=== PATIENT | male | born 1940 | race Caucasian/White ===

== ENCOUNTER → 2017-10-08 | Outpatient (CLI) | payer MEDICARE, OTHER | END | disposition home or self-care (01) | LOC: CFH 12:30 | PROVIDERS: ATTEND Internal Medicine Cardiovascular Disease | DX: I35.8 Other nonrheumatic aortic valve disorders (principal); Z85.46 Personal history of malignant neoplasm of prostate; Z87.891 Personal history of nicotine dependence | CPT/HCPCS: 93306 ==

== ENCOUNTER 2017-11-08 10:41 | Observation (INO) | payer MEDICARE, OTHER ==
[~2017-11-08] VITALS: Ht 177.8 cm; Wt 74.4 kg
[2017-11-08] MEDS ORDERED: SODIUM CHLORIDE 0.9% 1,000 ML IV ONE (13:26)
[2017-11-08] MEDS ORDERED: ALLO100T30 PO (13:29)
[2017-11-08] MEDS ORDERED: HYDR12.53 PO (13:29)
[2017-11-08 13:30] VITALS: BP 161/93
[2017-11-08] MEDS ORDERED: ASPIRIN 325 MG TABLET EC PO ONE (13:30)
[2017-11-08 13:54] LABS: BASOPHILS # (AUTO) 0.04 x10^3/uL (0-0.1); BASOPHILS % (AUTO) 1 % (0-1); EOSINOPHILS # (AUTO) 0.17 x10^3/uL (0-0.4); EOSINOPHILS % (AUTO) 3 % (1-7); LYMPHOCYTES # (AUTO) 1.23 x10^3/uL (1-3.4); LYMPHOCYTES % (AUTO) 24 % (22-44); MD NO; MEAN CORPUSCULAR HEMOGLOBIN 29.9 pg (27.5-34.5); MEAN CORPUSCULAR VOLUME 90.7 fL (81-97); MEAN PLATELET VOLUME 7.1 fL (7.4-10.4); MONOCYTES # (AUTO) 0.49 x10^3/uL (0.2-0.8); MONOCYTES % (AUTO) 9 % (2-9); NEUTROPHILS # (AUTO) 3.28 x10^3/uL (1.8-6.8); NEUTROPHILS % (AUTO) 63 % (42-75); PLATELET COUNT 233 x10^3/uL (130-400); RED BLOOD COUNT 5.26 x10^6/uL (4.38-5.82); RED CELL DISTRIBUTION WIDTH 14.8 % (9.4-14.8)
[2017-11-08 14:02] LABS: ANION GAP 6 mmol/L (5-15); CALCIUM 8.7 mg/dL (8.5-10.1); CHLORIDE 99 mmol/L (98-107)
[2017-11-08] MEDS ORDERED: FENTANYL PF 100 MCG/2ML ONE (14:35)
[2017-11-08] MEDS ORDERED: MIDAZOLAM 1 MG/ML, 5ML ONE (14:35)
[2017-11-08] MEDS ORDERED: TICAGRELOR 90 MG TABLET ONE (14:35)
[2017-11-08] MEDS ORDERED: VERAPAMIL 2.5 MG/ML, 2ML ONE (14:36)
[2017-11-08] MEDS ORDERED: LIDOCAINE-MPF 2% ,5ML ONE (14:36)
[2017-11-08] MEDS ORDERED: BIVALIRUDIN 250 MG ONE (14:36)
[2017-11-08] MEDS ORDERED: HEPARIN 1,000 UNITS/ML, 10ML ONE (14:36)
[2017-11-08] MEDS ORDERED: BIVALIRUDIN 250 MG in DEXTROSE 5% 50 ML IV SCH (15:21)
[2017-11-08] MEDS ORDERED: ONDANSETRON 2MG/ML, 2ML IVPush PRN (15:30)
[2017-11-08] MEDS ORDERED: ACETAMINOPHEN 325 MG TABLET PO PRN (15:30)
[2017-11-08] MEDS ORDERED: ZOLPIDEM 5MG TABLET PO PRN (15:30)
[2017-11-08 20:00] VITALS: BP 138/80
[2017-11-08] MEDS: TICAGRELOR 90 MG TABLET PO SCH (21:24)
[2017-11-08] MEDS: SODIUM CHLORIDE 0.9% 1,000 ML IV SCH (21:26)
[2017-11-08 21:39] LABS: TROPONIN I 0.202 ng/mL (0.000-0.045)
[2017-11-09 02:32] VITALS: BP 121/71
[2017-11-09 04:59] LABS: ALBUMIN 3.2 g/dL (3.4-5.0); ANION GAP 9 mmol/L (5-15); CALCIUM 8.5 mg/dL (8.5-10.1); CHLORIDE 102 mmol/L (98-107)
[2017-11-09 05:01] LABS: CREATININE 0.87 mg/dL (0.7-1.3)
[2017-11-09] MEDS: SODIUM CHLORIDE 0.9% 1,000 ML IV SCH (05:11)
[2017-11-09 07:30] VITALS: BP 105/70
[2017-11-09] MEDS: TICAGRELOR 90 MG TABLET PO SCH (07:38)
[2017-11-09] MEDS ORDERED: ACET325T14 PO (08:16)
[2017-11-09] MEDS ORDERED: ASPI-621 PO (08:16)
[2017-11-09] MEDS ORDERED: NITR0.4T28 SL (08:16)
[2017-11-09] MEDS ORDERED: TICA90TA PO (08:16)
[2017-11-09] MEDS ORDERED: ATOR40TA78 PO (08:16)
[2017-11-09] MEDS ORDERED: ALLOPURINOL 100 MG TABLET PO SCH (09:00)
[2017-11-09] MEDS ORDERED: HYDROCHLOROTHIAZIDE 12.5 MG CAPSULE PO SCH (09:00)
[2017-11-09] MEDS ORDERED: ASPIRIN 81 MG TABLET EC PO SCH (09:00)
== END 2017-11-09 11:25 | disposition home or self-care (01) ==
LOC: CACL 10:41 → ORIP 15:21 → 5SO 15:38 → DCLOUNGE 11-09 11:09
PROVIDERS: ADMIT Internal Medicine Cardiovascular Disease; ATTEND Internal Medicine Cardiovascular Disease
DX: I25.110 Atherosclerotic heart disease of native coronary artery with unstable angina pectoris (principal); R03.0 Elevated blood-pressure reading, without diagnosis of hypertension; R00.2 Palpitations; R60.0 Localized edema; Z82.49 Family history of ischemic heart disease and other diseases of the circulatory system
CPT/HCPCS: 36415; 80048; 82040; 84484; 85014; 85018; 85025; 93005; 93458; 99156; 99157; C1725; C1769; C1874; C1887; C1894; C9600; G0378; J0583; J1644; J2250; J3010; J3490; J7030; Q9967

== ENCOUNTER → 2018-01-04 | Outpatient (CLI) | payer MEDICARE, OTHER ==
[~2018-01-04] MED LIST: ACET325T14 PO; ALLO100T30 PO; ASPI-621 PO; ATOR40TA78 PO; HYDR12.53 PO; NITR0.4T28 SL; TICA90TA PO
[2018-01-04 13:06] LABS: CHLORIDE 100 mmol/L (98-107)
[2018-01-04 13:18] LABS: ALANINE AMINOTRANSFERASE 30 U/L (12-78); ALBUMIN 3.6 g/dL (3.4-5.0); ALKALINE PHOSPHATASE 68 U/L (45-117); ANION GAP 6 mmol/L (5-15); CALCIUM 8.4 mg/dL (8.5-10.1); CHOL/HDL RATIO 1.5; CHOLESTEROL, TOTAL 85 mg/dL (140-239); CREATININE 0.97 mg/dL (0.7-1.3); HDL CHOL % 68 % (26-37); HDL CHOLESTEROL (DIRECT) 58 mg/dL (40-60); LDL CHOLESTEROL,CALCULATED 19 mg/dL (54-169); LDL/HDL RATIO 0.3 (0.5-3.0); TOTAL PROTEIN 6.7 g/dL (6.4-8.2); TRIGLYCERIDES 42 mg/dL (50-200); VLDL CHOLESTEROL 8 mg/dL (0-25)
== END | disposition home or self-care (01) ==
LOC: CFH 07:29
PROVIDERS: ATTEND Internal Medicine Cardiovascular Disease
DX: I25.10 Atherosclerotic heart disease of native coronary artery without angina pectoris (principal); Z87.891 Personal history of nicotine dependence
CPT/HCPCS: 36415; 80053; 80061